=== PATIENT | male | born 1985 | race Caucasian/White ===

== ENCOUNTER 2018-01-19 10:41 | Emergency (ER) | payer MEDICAID, SELFPAY ==
[2018-01-19 10:42] VITALS: BP 153/79; PULSE 104; RESP 14; TEMP 37; O2SAT 98; BMI 18.6
--- NOTE | 2018-01-19 10:55 | ED.DCSUM_ITS ---
- ER Visit Summary Date of Service: 01/19/18 Chief Complaint: Left ankle redness History of Present Illness: The patient is a 32 M presents to the emergency department 24 hours worsening redness in the posterior left ankle. Patient states he was mowing the grass yesterday. He is wearing tall boots. He denies any injury. He states that he had a small blister on the back of his Achilles. Over the past 24 hours, the areas become increasingly tender and he is also noted some redness and swelling. He denies any fevers or chills. He denies any history of immunosuppression. He is not a diabetic. He has never had MRSA before that he knows of. Physical Examination: Exam is relatively unremarkable. Patient does have superficial abrasion the posterior left Achilles. There is some erythema and edema from the left lateral malleolus down to the foot. He is tender to palpation. There is no fluctuant area. There is no streaking or lymphangitis. His pulses are normal. There is no crepitus. Pain is not out of proportion. Test Results: [] Emergency Department Course and Treatment: The patient likely has cellulitis secondary from skin breakdown. There was no evidence of necrotizing fasciitis. There is no evidence of joint infection. I am going to start patient on Keflex and Bactrim. I did career development counselor him that the symptoms are not improving or are worsening in any way over the next 24-48 hours, he needs to return to the emergency department. He is comfortable this plan of care Treatment Plan: [] Disposition: Discharge Impression: 1. Left lower extremity cellulitis This note was generated with [employer] dictation software. It may contain incorrect words, spelling, and punctuation that were not noted in review of the chart prior to signing ED Disposition - Plan for ED Patient: Chief Complaint: Cellulitis Instructions: Discharge Instructions for Cellulitis Prescriptions: Hydrocodone Bitart/Apap 5-325 [[place] 5MG-325MG] 1 tab PO Q6H PRN PRN 3 Days #6 tab PRN Reason: Pain Cephalexin [Keflex] 500 mg PO Q6 #40 cap Smz/Tmp Ds [Bactrim Ds] 1 tab PO BID #14 tab Referrals: Care Physician,No Primary [Primary Care Provider] -
[2018-01-19] MEDS: Cephalexin 250 MG Capsule 500 MG PO (11:03)
[2018-01-19] MEDS: Smz/Tmp Ds Tablet 1 TABLET PO (11:03)
== END 2018-01-19 11:08 | disposition home or self-care (01) ==
PROVIDERS: Emergency Provider Emergency Medicine
DX: L03.116 Cellulitis of left lower limb (principal); S90.512A Abrasion, left ankle, initial encounter; X58.XXXA Exposure to other specified factors, initial encounter; Y93.9 Activity, unspecified; Y92.9 Unspecified place or not applicable; Y99.9 Unspecified external cause status; Z72.0 Tobacco use
CPT/HCPCS: 99283

== ENCOUNTER 2022-06-27 14:06 | Emergency (ER) | payer MEDICAID, SELFPAY ==
[2022-06-27 14:07] VITALS: BP 171/100; PULSE 96; TEMP 35.6; O2SAT 98; BMI 21.7
--- NOTE | 2022-06-27 14:35 | EKG12_ITS ---
Test Reason : Blood Pressure : / mmHG Vent. Rate : 058 BPM Atrial Rate : 058 BPM P-R Int : 140 ms QRS Dur : 126 ms QT Int : 442 ms P-R-T Axes : 051 079 055 degrees QTc Int : 433 ms Sinus bradycardia Left ventricular hypertrophy with QRS widening Abnormal ECG Confirmed by [place] RICHARDSON, CLAUDINE ([id number]), editor department ANGELIC GUY ([id number]) on 07/01/2022 11:01:16 AM Referred By: MARIA GUADALUPE Confirmed By:CLAUDINE CASIANO MD
--- NOTE | 2022-06-27 14:36 | EDS_ITS ---
HPI History of Present Illness Chief Complaint: General Illness Narrative Narrative: 37-year-old male past medical history of depression and anxiety usually takes Wellbutrin 150 mg daily. He sees a counselor in [facility], and recently they added Zoloft 25 mg once a day to his medications to help with his anxiety. He states that about 9:00 this morning, he began having symptoms. He was in class and started to freak out. He denies any suicidal ideation, but he felt his heart racing. He denies any chest pain or shortness of breath. He states he had to go to the park, and calm himself down. He has only been taking the 25 mg of Zoloft for the last 2 days, but he was told that these can be some of the side effects from it. He is feeling improved, but he states he came to the emergency department just to be checked out. He is feeling markedly improved. [facility] Medical History Anxiety Depression Home Medications bupropion HCl 150 mg 24 hr tablet, extended release 150 mg PO DAILY 06/27/22 [History Last Taken Unknown] sertraline 25 mg tablet 25 mg PO DAILY 06/27/22 [History Last Taken Unknown] Allergy/AdvReac Type Severity Reaction Status Date / Time No Known Allergies Allergy Verified 01/19/18 10:42 Social History Smoking Status: Current every day smoker tobacco type: e-cigarettes ROS ROS ED ROS Narrative Constitutional: No fever, no chills. HEENT: No sore throat. No neck pain. No loss of vision. No rhinorrhea. Cardiovascular: No chest pain. Positive palpitations. No pedal edema. Respiratory: No cough, no shortness of breath. Abdominal: No abdominal pain. No nausea. No vomiting. Genitourinary: No dysuria. No hematuria. Musculoskeletal: No myalgias. No arthralgias. Neurologic: No headaches. No dizziness. No lightheadedness. Skin: No rash. No change in color. Psychiatric: No depression. Positive anxiety. EXAM Physical Exam Narrative Exam Narrative: Afebrile. Vital signs noted. HEENT: Normocephalic. Atraumatic. PERRL, EOMI. Neck soft and supple. No point tenderness or step off. Cardiovascular: Regular rate and rhythm. No murmurs, rubs, or gallops appreciated. Respiratory: No tachypnea. Lungs clear to auscultation bilaterally. Gastrointestinal: Abdomen soft, nontender, with normoactive bowel sounds. No rebound or guarding. Neurological: Awake. Alert. Nonfocal, nonlateralizing. Skin: No rash. Normal color. No pallor. Musculoskeletal: No pedal edema. Full range of motion extremities. Const Vital Signs: 06/27/22 14:07 06/27/22 14:19 Temperature 96.1 F L Temperature Source Temporal Pulse Rate 96 Respiratory Effort Normal Non-Labored Respiratory Pattern Normal Blood Pressure 171/100 H Blood Pressure Mean 123 Pulse Ox 98 Oxygen Delivery Method Room Air MDM MDM MDM Narrative Medical decision making narrative: EKG will be obtained for his palpitations. I do feel that this is more than likely a medication side effect. I do not feel laboratory work is indicated. EKG was obtained and interpreted by myself and it demonstrates sinus bradycardia at 58 bpm without ectopy or acute ST changes. He does have left ventricular hypertrophy by voltage it was noted that he did have elevated blood pressure, but this will be rechecked. If it remains high, he is asymptomatic with it, and he will be told to follow-up with his primary care physician and keep a log of his blood pressure. I do feel he can be discharged safely home with follow-up to his primary care physician and his psychiatric counselor. Return instruct ions to the emergency department were reviewed. Disposition is discharged home in stable condition. Discharge Plan Triage Chief Complaint: General Illness ED Provider: Jeramy Amaro Dx/Rx/DC Orders Clinical Impression: Palpitations, Anxiety, Elevated blood pressure reading without diagnosis of hypertension Instructions: ED Anxiety Reaction, ED Hypertension, To Be Confirmed, ED Palpitations Prescriptions: No Action bupropion HCl 150 mg tablet extended release 24 hr 150 mg PO DAILY Label Comments: TAKE 1 TABLET BY MOUTH EVERY MORNING sertraline 25 mg tablet 25 mg PO DAILY Label Comments: Take 1 tablet by mouth once a day Primary Care Provider: MAURICIO FLORES Referrals: MAURICIO FLORES, [employer] FIELD HOCKEY COACH-C [Primary Care Provider] - As soon as possible Activity Restrictions/Additional Instructions: Keep track of your blood pressure, and follow-up with a primary care provider. Call your psychiatric provider to inform them you are having side effects from the sertraline. Disposition Disposition: Home, Self Care
== END 2022-06-27 15:00 | disposition home or self-care (01) ==
PROVIDERS: Emergency Provider Emergency Medicine; PCP Registered Nurse; Visit Provider Emergency Medicine
DX: F41.9 Anxiety disorder, unspecified (principal); R03.0 Elevated blood-pressure reading, without diagnosis of hypertension; F32.A Depression, unspecified; R00.2 Palpitations; F17.210 Nicotine dependence, cigarettes, uncomplicated; Z79.899 Other long term (current) drug therapy
CPT/HCPCS: 93005; 99282

== ENCOUNTER 2023-06-10 10:55 | Emergency (ER) | payer MEDICAID, SELFPAY ==
[2023-06-10 10:55] VITALS: BP 153/90; PULSE 87; RESP 16; TEMP 36.3; O2SAT 99; BMI 21.4
--- NOTE | 2023-06-10 11:24 | EX.ED.DYSGE1 ---
HPI History of Present Illness Chief Complaint: Nausea/Vomiting Detail of Chief Complaint: Nausea and vomiting this a.m. Informant: patient Onset/Context/Timing Onset: Today Context: Sudden Onset Timing: Intermittent Quality: Nausea and vomiting 4-7 times since this morning/awakening Location: GI Current Severity: Mild Maximum Severity: Severe Worsened by: Nothing Relieved by: Nothing Associated Symptoms Associated Symptoms: Thirst and dry mouth. Narrative Narrative: Patient is a 38-year-old male who had [employer] last evening. Friend had the same food he did and is not symptomatic. He has vomited either 4-7 times this morning. Denies hematemesis or coffee-ground emesis. Denies diarrhea. Complains of some vague upper abdominal discomfort. Denies intolerance to greasy or fried foods prior to last evening. No family history cholelithiasis. He denies fever, chills night sweats. He denies headache, visual, ocular auditory symptoms. He denies rhinorrhea, congestion or postnasal drainage. No sore throat. Denies chest pain, orthopnea or PND. He denies dyspnea. Prior similar symptoms: Yes Recent Illness/Hospitalization: No PFSH PFS Medical History Anxiety Depression Home Medications bupropion HCl 150 mg 24 hr tablet, extended release 150 mg PO DAILY 06/27/22 [History Last Taken Unknown] sertraline 25 mg tablet 25 mg PO DAILY 06/27/22 [History Last Taken Unknown] Allergy/AdvReac Type Severity Reaction Status Date / Time No Known Allergies Allergy Verified 01/19/18 10:42 Social History (Updated 06/10/23 @ 11:[address] Feng Barrios MD) household members: none Smoking Status: Current every day smoker tobacco type: e-cigarettes details: Social ROS ROS ED Constitutional Constitutional ED: Denies chills, fever(s), subjective or sweats Eyes Eyes: Denies blurry vision, change in vision or diplopia ENT ENT ED: Denies ear pain, rhinorrhea or sore throat Cardiovascular Cardiovascular: Denies chest pain, palpitations or racing heartbeat Respiratory/Chest Respiratory/Chest: Denies cough, dyspnea or dyspnea on exertion Gastrointestinal Gastrointestinal: Reports abdominal pain, nausea and vomiting; Denies constipation, diarrhea or melena Genitourinary Genitourinary ED: Denies dysuria, hematuria or urinary frequency Musculoskeletal Musculoskeletal: Denies arthralgias, back pain, myalgias or neck pain Integumentary Denies rash Neurologic Neurologic: Denies headache(s) or paresthesias Hematologic/Lymphatic Hematologic/Lymphatic: Reports systems reviewed and no addt'l complaints, except as documented EXAM Physical Exam Const Vital Signs: 06/10/23 10:55 Temperature 97.4 F L Temperature Source Temporal Pulse Rate 87 Respiratory Rate 16 Blood Pressure 153/90 H Blood Pressure Mean 111 Pulse Ox 99 Oxygen Delivery Method Room Air Positive well nourished and well developed Constitutional Narrative: There is no eye contact. Patient is fidgety. When asked if he is uncomfortable he says he is trying to find a position of comfort. General Appearance ED: well developed; Negative for pallor HEENT Reports dry mucous membranes HEENT Narrative: Head is atraumatic and normocephalic. Ears normal. Nares patent. Posterior pharynx is normal. Mouth ED: Yes dry mucous membranes Mouth: dry mucous membranes Eyes PERRL and EOMs intact bilaterally General Eye ED: Negative for pale conjunctiva or scleral icterus Neck no lymphadenopathy, supple and no JVD Chest Wall inspection of chest normal and palpation of chest normal Resp normal respiratory effort and clear to auscultation bilaterally Cardio regular rate, regular rhythm, S1 normal heart sound, S2 normal heart sound and no murmurs GI normal to inspection, nondistended, normoactive bowel sounds, non-distended and no masses; Negative for non-tender or hepatosplenomegaly Palpation: tender epigastric Back/Spine no CVA tenderness Extremity Extremity Narrative: No eye contact. Patient's thought process is normal. Affect is unusual. Neuro oriented x3, CN's II-XII intact bilaterally and no sensory deficits noted Sensorium / Orientation: alert Motor Exam: strength 5/5 throughout Psych Appearance: other Skin no rashes or lesions noted and no wounds General Skin Exam: Negative for jaundice or pallor MDM MDM MDM Narrative Medical decision making narrative: Clinically patient dehydrated. 1 L normal saline was ordered. Suspect patient may have a viral illness because he complains of myalgias arthralgias along with the nausea and vomiting and no one else that had the same food he ate is ill. Zofran was ordered for his nausea and vomiting. Will reassess and have nurse perform p.o. challenge. Will obtain BMP to assess renal function and electrolytes. Lab Data Attestation: I reviewed the patient's lab results. Lab results narrative: BMP reveals slight elevation of BUN and creatinine from baseline. This is consistent with mild dehydration. Labs: Laboratory Results - last 24 hr 06/10/23 11:25 Sodium 133 L Potassium 3.5 Chloride 100 Carbon Dioxide 26.0 Anion Gap 7 BUN 26 H Creatinine 1.20 Estim Creat Clear Calc 82.74 Est GFR (MDRD) Af Amer 86 Est GFR (MDRD) Non-Af 71 BUN/Creatinine Ratio 21.7 H Glucose 96 Calcium 9.1 Treatment and Re-Evaluation :: Patient was reevaluated at 1301. Patient's past p.o. challenge. Patient be discharged to home. Discharge Plan Triage Chief Complaint: Nausea/Vomiting ED Provider: Feng aBrrios Dx/Rx/DC Orders Clinical Impression: Acute dehydration, Nausea & vomiting, Acute epigastric pain Instructions: ED Vomiting (Adult) Prescriptions: No Action bupropion HCl 150 mg tablet extended release 24 hr 150 mg PO DAILY Patient Comments: TAKE 1 TABLET BY MOUTH EVERY MORNING sertraline 25 mg tablet 25 mg PO DAILY Patient Comments: Take 1 tablet by mouth once a day Primary Care Provider: MAURICIO FLORES Referrals: MAURICIO FLORES, COMPUTER SERVICE TECHNICIAN-C [Primary Care Provider] - 3-5 Days if not improving Disposition Disposition: Home, Self Care
[2023-06-10] MEDS: Ondansetron 4 MG/2 ML Vial IV (11:39)
[2023-06-10] MEDS: 0.9% Normal Saline (1000mL) 1,000 ML 1000 ML IV (11:39)
[2023-06-10 11:52] LABS: Anion Gap 7 (5-15); BUN 26 mg/dL (7-18); BUN/Creat Ratio 21.7 RATIO (10-20); Calcium,Total 9.1 mg/dL (8.5-10.1); Chloride 100 mmol/L (98-107); EST Glomerular Filtration Rate 71 mL/min (>60); Est Glom Filt Rate - Afr Amer 86 mL/min (>60); Estimated Creatinine Clearance 82.74 ml/min; Glucose 96 mg/dL (74-106); Potassium 3.5 mmol/L (3.5-5.1); Sodium Level 133 mmol/L (136-145)
--- OUTSIDE RECORDS SUMMARY | 2023-06-10 16:40 | XMS RPT_ITS | CCD ---
Author Name Unknown Address [id number] [place] [address] Organization [facility] Care Team Providers Care Supervisor [employer] Name Role Phone MAURICIO FLORES Referring Unavailable Problems Problem Classification Problem Date Documented Da te Episodic/Chronic Anxiety disorders (1 source) Generalized anxiety disorder; Translations: [Generalized anxiety disorder] Onset: 07-05-2022 Chronic Mood disorders (1 source) Major depressive disorder, recurrent, moderate; Translations: [Major depressive disorder, recurrent episode, moderate (HCC)] Onset: 07-05-2022 Chronic Results Test Name Value Interpretation Reference Range Facil ity Encounters Encounter Date Encounter Type Care Provider Facility Start: 07-05-2022 End: 07-06-2022 ambulatory MAURICIO FLORES Facility:[facility] Payers Date Payer Category Payer Medicaid [id number] Summary Purpose Family History No Family History Records Found Advance Directives No Advanced Directives Records Found Additional Source Comments (unrecognized sect ion and content) No Status Records Found INFORMATION SOURCE (unrecogn ized section and content) FOR RECORDS PERTAINING TO PATIENTS WHO ARE OR HAVE BEEN ENROLLED IN A CHEMICAL DEPENDENCY/SUBSTANCEABUSE PROGRAM, SOME INFORMATION MAY BE OMITTED. This clinical summary was aggregated from multiple sources. Caution should be exercised in using it in the provision of clinical care. This summary normalizes information from multiple sources, and as a consequence, information in this document may materially change the coding, format and clinical context of patient data. In addition, data may be omitted in some cases. CLINICAL DECISIONS SHOULD BE BASED ON THE PRIMARY CLINICAL RECORDS. [facility]. provides no warranty or guarantee of the accuracy or completeness of information in this document.
== END 2023-06-10 14:02 | disposition home or self-care (01) ==
PROVIDERS: Emergency Provider Emergency Medicine; PCP Registered Nurse; Visit Provider Emergency Medicine
DX: E86.0 Dehydration (principal); R11.2 Nausea with vomiting, unspecified; R10.13 Epigastric pain; F32.A Depression, unspecified; F41.9 Anxiety disorder, unspecified; F17.290 Nicotine dependence, other tobacco product, uncomplicated; Z79.899 Other long term (current) drug therapy
CPT/HCPCS: 80048; 96361; 96374; 99283; A4216; J2405